=== PATIENT | male | born 2000 | race Caucasian/White ===

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

== ENCOUNTER 2021-11-03 14:14 | Inpatient (IN) | payer OTHER ==
[~2021-11-03] VITALS: Ht 175.3 cm; Wt 75.5 kg
[2021-11-03] MEDS: FOLIC ACID 1 MG TAB PO SCH (09:00)
[2021-11-03] MEDS: MULTIVITAMINS/MINERALS THERAP 1 TAB PO SCH (09:00)
[~2021-11-03 14:14] MED LIST changes: -HYDROmorphone HCL 2 MG/ML 1ML VIAL (J1170) As Ordered ONE; -IBUPROFEN 600 MG TAB PO PRN; -LIDOCAINE W/EPINEPHRINE 1% 20ML VIAL As Ordered ONE; -LIDOCAINE W/EPINEPHRINE 1% 20ML VIAL XX ONE; -LR 1,000 ML IV SCH; -METHYLENE BLUE 1% 10 ML VIAL (Q9968) As Ordered ONE; -METHYLENE BLUE 1% 10 ML VIAL (Q9968) XX ONE; -METOCLOPRAMIDE INJ 10MG/2ML VIAL (J2765) IV PRN; -MIDAZOLAM INJ 2 MG/2 ML VIAL (J2250) As Ordered ONE; -OMEP40CA2 PO; +OMEP40CA4 PO; -ONDANSETRON 4MG/2ML VIAL (J2405) As Ordered ONE; -ONDANSETRON 4MG/2ML VIAL (J2405) IV PRN; -OXYMETAZOLINE NASAL SPRAY (AFRIN) As Ordered ONE; -OXYMETAZOLINE NASAL SPRAY (AFRIN) XX ONE; -PERCOCET 5MG/325MG TAB PO PRN; -PROPOFOL 200 MG/20 ML VIAL As Ordered ONE; -SUCCINYLCHOLINE 100 MG/5 ML SYRINGE (J0330) As Ordered ONE; -dexameTHASONE 4 MG/ML 1ML VIAL (J1100) As Ordered ONE; -fentaNYL 100 MCG/2 ML INJECTION (J3010) As Ordered ONE; -fentaNYL 100 MCG/2 ML INJECTION (J3010) IV PRN
[2021-11-03 15:17] LABS: AMPHETAMINES LEVEL URINE NEGATIVE (NEGATIVE); BARBITURATES URINE NEGATIVE (NEGATIVE); BENZODIAZEPINES URINE NEGATIVE (NEGATIVE); CANNABINOIDS URINE POSITIVE (NEGATIVE); COCAINE METABOLITE URINE NEGATIVE (NEGATIVE); METHADONE URINE NEGATIVE (NEGATIVE); OPIATES URINE NEGATIVE (NEGATIVE); PHENCYCLIDINE URINE NEGATIVE (NEGATIVE)
[2021-11-03 15:18] LABS: HEMATOCRIT 44.1 % (42.0-52.0); HEMOGLOBIN 15.4 g/dl (13.5-17.5); MEAN CORPUSCULAR HEMOGLOBIN 30.9 pg (27.0-33.0); MEAN CORPUSCULAR HGB CONC 34.9 g/dl (32.0-36.5); MEAN CORPUSCULAR VOLUME 88.6 fl (80.0-96.0); PLATELET COUNT, AUTOMATED 245 10^3/uL (150-450); RED BLOOD COUNT 4.98 10^6/uL (4.30-6.10); WHITE BLOOD COUNT 12.4 10^3/uL (4.0-10.0)
[2021-11-03 15:53] LABS: ACETAMINOPHEN LEVEL < 2.0 UG/ML (10.0-30.0); ALBUMIN 3.9 GM/DL (3.2-5.2); ALT/SGPT 25 U/L (12-78); BILIRUBIN,DIRECT 0.1 MG/DL (0.0-0.2); BILIRUBIN,TOTAL 0.3 MG/DL (0.2-1.0); BLOOD UREA NITROGEN 11 MG/DL (7-18); CARBON DIOXIDE LEVEL 28 MEQ/L (21-32); CHLORIDE LEVEL 108 MEQ/L (98-107); CREATININE FOR GFR 0.82 MG/DL (0.70-1.30); ETHYL ALCOHOL (ETHANOL) 0.004 % (0.000-0.010); GLUCOSE, FASTING 96 MG/DL (70-100); POTASSIUM SERUM 4.1 MEQ/L (3.5-5.1); SALICYLATE LEVEL < 1.7 MG/DL (5.0-30.0); SODIUM LEVEL 139 MEQ/L (136-145); TOTAL PROTEIN 7.8 GM/DL (6.4-8.2)
[2021-11-03] MEDS ORDERED: hydrOXYzine 25 MG TAB PO PRN (16:15)
[2021-11-03] MEDS ORDERED: LORazepam 2 MG TAB PO PRN (16:15)
[2021-11-03] MEDS ORDERED: ACETAMINOPHEN TAB 650MG DOSE (2X325MG) PO PRN (16:15)
[2021-11-03] MEDS ORDERED: MOM 30ML SUSPENSION UDC PO PRN (16:15)
[2021-11-03] MEDS ORDERED: NICOTINE 21MG/24HR 1 EA TRANSDERMAL TD PRN (16:15)
[2021-11-03] MEDS ORDERED: traZODone 50 MG TAB PO PRN (16:15)
[2021-11-03] MEDS ORDERED: MAALOX 30 ML SUSP *UDC PO PRN (16:15)
[2021-11-03] MEDS ORDERED: HOME MED LIST COMPLETE! XX SCH (16:45)
[2021-11-03 17:15] LABS: RSV AMPLIFICATION NEGATIVE (NEGATIVE)
[2021-11-03 20:46] VITALS: BP 138/73
[2021-11-03 20:48] VITALS: BP 138/73
[2021-11-03] MEDS: THIAMINE 100 MG TAB PO SCH (21:00)
[2021-11-04 06:31] VITALS: BP 154/72
[2021-11-04 06:43] VITALS: BP 154/72
[2021-11-04] MEDS: MULTIVITAMINS/MINERALS THERAP 1 TAB PO SCH (08:42)
[2021-11-04] MEDS: SERTRALINE HCL 50 MG TAB PO SCH (08:42)
[2021-11-04] MEDS: THIAMINE 100 MG TAB PO SCH ×2 (08:42→21:49)
[2021-11-04] MEDS: FOLIC ACID 1 MG TAB PO SCH (08:42)
[2021-11-04] MEDS ORDERED: ESCITALOPRAM OXALATE 10 MG TAB (LEXAPRO) PO SCH (09:00)
[2021-11-04] MEDS ORDERED: LORazepam 2 MG TAB PO PRN (11:30)
[2021-11-04 17:21] VITALS: BP 136/74
[2021-11-04 20:00] VITALS: BP 132/78
[2021-11-04] MEDS ORDERED: THIAMINE 100 MG TAB PO SCH (21:00)
[2021-11-05 06:30] VITALS: BP 138/76
[2021-11-05] MEDS: FOLIC ACID 1 MG TAB PO SCH (08:20)
[2021-11-05] MEDS: THIAMINE 100 MG TAB PO SCH ×2 (08:20→21:08)
[2021-11-05] MEDS: SERTRALINE HCL 50 MG TAB PO SCH (08:20)
[2021-11-05] MEDS: MULTIVITAMINS/MINERALS THERAP 1 TAB PO SCH (08:20)
[2021-11-05] MEDS ORDERED: MULTIVITAMINS/MINERALS THERAP 1 TAB PO SCH (09:00)
[2021-11-05] MEDS ORDERED: FOLIC ACID 1 MG TAB PO SCH (09:00)
[2021-11-05 17:55] VITALS: BP 141/88
[2021-11-06 06:57] VITALS: BP 134/68
[2021-11-06] MEDS ORDERED: ENTER DRUG NAME HERE (PATIENT'S OWN MED) PO SCH (09:00)
[2021-11-06] MEDS: MULTIVITAMINS/MINERALS THERAP 1 TAB PO SCH (09:20)
[2021-11-06] MEDS: AUGMENTIN 875 MG TAB PO SCH ×2 (09:20→20:48)
[2021-11-06] MEDS: FOLIC ACID 1 MG TAB PO SCH (09:20)
[2021-11-06] MEDS: SERTRALINE HCL 50 MG TAB PO SCH (09:20)
[2021-11-06] MEDS: THIAMINE 100 MG TAB PO SCH (09:20)
[2021-11-07 06:30] VITALS: BP 117/63
[2021-11-07] MEDS: AUGMENTIN 875 MG TAB PO SCH ×2 (09:28→20:40)
[2021-11-07] MEDS: SERTRALINE HCL 50 MG TAB PO SCH (09:28)
[2021-11-07] MEDS: MULTIVITAMINS/MINERALS THERAP 1 TAB PO SCH (09:28)
[2021-11-07] MEDS: FOLIC ACID 1 MG TAB PO SCH (09:28)
[2021-11-07 16:23] VITALS: BP 127/63
[2021-11-08 06:06] VITALS: BP 117/72
[2021-11-08] MEDS: AUGMENTIN 875 MG TAB PO SCH ×2 (08:46→21:51)
[2021-11-08] MEDS: SERTRALINE HCL 50 MG TAB PO SCH (08:46)
[2021-11-08] MEDS: MULTIVITAMINS/MINERALS THERAP 1 TAB PO SCH (08:46)
[2021-11-08] MEDS: FOLIC ACID 1 MG TAB PO SCH (08:46)
[2021-11-08 16:10] VITALS: BP 126/69
[2021-11-09 06:18] VITALS: BP 147/74
[2021-11-09] MEDS: AUGMENTIN 875 MG TAB PO SCH (07:54)
[2021-11-09] MEDS: FOLIC ACID 1 MG TAB PO SCH (07:54)
[2021-11-09] MEDS: SERTRALINE HCL 50 MG TAB PO SCH (07:54)
[2021-11-09] MEDS: MULTIVITAMINS/MINERALS THERAP 1 TAB PO SCH (07:55)
[2021-11-09] MEDS ORDERED: SERT50TA29 PO (08:06)
[2021-11-09] MEDS ORDERED: AMOX875T2 PO (08:28)
== END 2021-11-09 10:15 | disposition home or self-care (01) | DRG 880 ==
LOC: M ED 14:14 → M ED INP 16:15 → M PSY 18:26
PROVIDERS: ADMIT Psychiatry & Neurology Psychiatry; ATTEND Psychiatry & Neurology Psychiatry
DX: F41.1 Generalized anxiety disorder (principal); F43.23 Adjustment disorder with mixed anxiety and depressed mood; F10.10 Alcohol abuse, uncomplicated; F41.0 Panic disorder [episodic paroxysmal anxiety]; F17.290 Nicotine dependence, other tobacco product, uncomplicated; Z20.822 Contact with and (suspected) exposure to COVID-19; Z91.51 Personal history of suicidal behavior

== ENCOUNTER 2023-11-05 08:59 | Emergency (ER) | payer OTHER ==
[~2023-11-05 08:59] MED LIST changes: +AMOX875T2 PO; +MONT-5 PO; +SERT50TA29 PO; -SING10TA32 PO
[2023-11-05 09:53] LABS: HEMATOCRIT 45.5 % (42.0-52.0); HEMOGLOBIN 15.9 g/dl (13.5-17.5); MEAN CORPUSCULAR HEMOGLOBIN 30.6 pg (27.0-33.0); MEAN CORPUSCULAR HGB CONC 34.9 g/dl (32.0-36.5); MEAN CORPUSCULAR VOLUME 87.5 fl (80.0-96.0); PLATELET COUNT, AUTOMATED 242 10^3/uL (150-450); WHITE BLOOD COUNT 13.2 10^3/uL (4.0-10.0)
[2023-11-05 10:17] LABS: ETHYL ALCOHOL (ETHANOL) 0.145 % (0.000-0.010)
[2023-11-05 10:18] LABS: SALICYLATE LEVEL < 3.0 MG/DL (<30)
[2023-11-05 10:19] LABS: ALBUMIN 4.2 G/DL (3.2-5.2); ALKALINE PHOSPHATASE 155 U/L (46-116); ALT/SGPT 18 U/L (7.0-40); AST/SGOT 14 U/L (<34); BILIRUBIN,DIRECT < 0.1 MG/DL (<0.4); BILIRUBIN,TOTAL 0.2 MG/DL (0.3-1.2); BLOOD UREA NITROGEN 10 MG/DL (9-23); CARBON DIOXIDE LEVEL 22 MMOL/L (20-31); CHLORIDE LEVEL 108 MMOL/L (98-107); GLOMERULAR FILTRATION RATE > 60.0 (>60); GLUCOSE, FASTING 102 MG/DL (60-100); POTASSIUM SERUM 3.7 MMOL/L (3.5-5.1); SODIUM LEVEL 143 MMOL/L (136-145); TOTAL PROTEIN 7.7 G/DL (5.7-8.2)
[2023-11-05 10:26] LABS: THYROID STIMULATING HORMONE 1.604 uIU/ML (0.55-4.78)
[2023-11-05 14:06] LABS: AMPHETAMINES LEVEL URINE NEGATIVE (NEGATIVE); BARBITURATES URINE NEGATIVE (NEGATIVE); COCAINE METABOLITE URINE NEGATIVE (NEGATIVE)
[2023-11-05 14:07] LABS: BENZODIAZEPINES URINE NEGATIVE (NEGATIVE); METHADONE URINE NEGATIVE (NEGATIVE); OPIATES URINE NEGATIVE (NEGATIVE); PHENCYCLIDINE URINE NEGATIVE (NEGATIVE)
[2023-11-05 14:08] LABS: CANNABINOIDS URINE POSITIVE (NEGATIVE)
[2023-11-05 16:17] VITALS: BP 147/87; TEMP 97.6; O2SAT 100
== END 2023-11-05 16:54 | disposition home or self-care (01) ==
LOC: M ED 08:59
DX: F10.129 Alcohol abuse with intoxication, unspecified (principal); F17.210 Nicotine dependence, cigarettes, uncomplicated; R45.851 Suicidal ideations; Z79.2 Long term (current) use of antibiotics; Z79.899 Other long term (current) drug therapy

== ENCOUNTER 2024-01-12 09:02 | Emergency (ER) | payer OTHER ==
[~2024-01-12] VITALS: Ht 177.8 cm; Wt 82.9 kg
[2024-01-12] MEDS ORDERED: SERT-141 PO (09:11)
[2024-01-12] MEDS: IBUPROFEN 600MG TAB PO ONE (09:43)
[2024-01-12 10:01] VITALS: BP 112/71; TEMP 98.3; O2SAT 97
== END 2024-01-12 10:02 | disposition home or self-care (01) ==
LOC: M ED 09:02
DX: S60.222A Contusion of left hand, initial encounter (principal); Y92.019 Unspecified place in single-family (private) house as the place of occurrence of the external cause; Y93.9 Activity, unspecified; Y99.9 Unspecified external cause status; F17.210 Nicotine dependence, cigarettes, uncomplicated; Z79.899 Other long term (current) drug therapy

== ENCOUNTER → 2024-07-29 | Outpatient (CLI) | payer OTHER ==
[~2024-07-29] MED LIST changes: +SERT-141 PO
== END ==
LOC: M SLEEP 20:00
PROVIDERS: ATTEND Nurse Practitioner Family
DX: R06.83 Snoring (principal)

== ENCOUNTER 2025-05-17 13:17 | Emergency (ER) | payer OTHER ==
[~2025-05-17] VITALS: Ht 177.8 cm; Wt 72.7 kg
[2025-05-17 13:57] LABS: PLATELET COUNT, AUTOMATED 222 10^3/uL (150-450)
[2025-05-17 14:20] LABS: AMPHETAMINES LEVEL URINE NEGATIVE (NEGATIVE); BARBITURATES URINE NEGATIVE (NEGATIVE)
[2025-05-17 14:21] LABS: BENZODIAZEPINES URINE NEGATIVE (NEGATIVE); COCAINE METABOLITE URINE NEGATIVE (NEGATIVE); ETHYL ALCOHOL (ETHANOL) < 0.003 % (0.000-0.010); METHADONE URINE NEGATIVE (NEGATIVE); OPIATES URINE NEGATIVE (NEGATIVE); PHENCYCLIDINE URINE NEGATIVE (NEGATIVE)
[2025-05-17 14:22] LABS: ALT/SGPT 22 U/L (7.0-40); AST/SGOT 20 U/L (<34); CALCIUM LEVEL 9.6 MG/DL (8.5-10.1); CARBON DIOXIDE LEVEL 26 MMOL/L (20-31); CHLORIDE LEVEL 105 MMOL/L (98-107); CREATININE FOR GFR 0.69 MG/DL (0.70-1.30); GLOMERULAR FILTRATION RATE > 90.0 (>60); POTASSIUM SERUM 4.3 MMOL/L (3.5-5.1); SALICYLATE LEVEL < 3.0 MG/DL (<30); SODIUM LEVEL 142 MMOL/L (136-145)
[2025-05-17 14:23] LABS: CANNABINOIDS URINE POSITIVE (NEGATIVE)
[2025-05-17 18:09] VITALS: BP 118/71; TEMP 97; O2SAT 96
== END 2025-05-17 18:11 | disposition home or self-care (01) ==
LOC: M ED 13:17
DX: F43.0 Acute stress reaction (principal); F17.290 Nicotine dependence, other tobacco product, uncomplicated; F12.10 Cannabis abuse, uncomplicated; F10.10 Alcohol abuse, uncomplicated; Z79.899 Other long term (current) drug therapy